=== PATIENT | male | born 1965 | race Caucasian/White ===

== ENCOUNTER → 2021-08-05 12:42 | Outpatient (BNVA) | payer BC, SELFPAY | PROVIDERS: Visit Provider Nurse Practitioner Family | DX: Z20.822 Contact with and (suspected) exposure to COVID-19 (principal) | CPT/HCPCS: 87635 ==

== ENCOUNTER 2022-06-15 10:56 | Outpatient (CLI) | payer BC, SELFPAY ==
--- NOTE | 2022-06-15 12:36 | USCV_ITS ---
Sujit Leticia Age: 56 Gender: M : 1965 Exam Date: 06/15/2022 13:02 Ordering Phys: Cori Marc Technologist: Meliton Flynn Exam Location: [facility] [place] Indication: dvt HISTORY: Patient states he has history of dvt in his rt popliteal vein. Patient has been on blood thinner for 90 days. PROCEDURES: Venous duplex imaging was performed in only the right lower extremity. The following venous structures were evaluated: common femoral vein, profunda vein, proximal portion of the greater saphenous vein, superficial femoral vein, and the popliteal vein. In addition, the posterior tibial and peroneal trunk were evaluated. Serial compression, augmentation maneuvers, and spectral Doppler flow evaluation were performed. FINDINGS: Nearly completely occlusive DVT right peroneal vein. All other veins examined appear free of thrombus at this time. CONCLUSIONS Acute DVT right peroneal vein. No prior study available for comparison. Dr. Kathy Lopez DO (Electronically Signed) Final Date: 15 June 2022 13:45 S
== END 2022-06-15 10:57 | disposition home or self-care (01) ==
PROVIDERS: Visit Provider Nurse Practitioner
DX: I83.891 Varicose veins of right lower extremity with other complications (principal); I82.451 Acute embolism and thrombosis of right peroneal vein
CPT/HCPCS: 93971

== ENCOUNTER → 2025-08-27 12:42 | Outpatient (BNVA) | payer SELFPAY | PROVIDERS: PCP Family Medicine; Visit Provider Family Medicine | DX: F32.A Depression, unspecified (principal); M10.9 Gout, unspecified; I10 Essential (primary) hypertension | CPT/HCPCS: 80053; 80061; 84550; 85025 ==